=== PATIENT | female | born 1980 | race Caucasian/White ===

== ENCOUNTER 2017-12-03 10:03 | Emergency (ER) | payer MEDICAID ==
[~2017-12-03] VITALS: Ht 558.9 cm; Wt 48.0 kg
[~2017-12-03 10:03] MED LIST: ALBU8.5H4 IH
[2017-12-03] MEDS ORDERED: ondansetron/PF 4mg/2ml inj IV ONE (10:25)
[2017-12-03] MEDS ORDERED: normal saline 1000ML IV soln IVB ONE (10:25)
[2017-12-03 11:09] LABS: BASOPHILS % (AUTO) 0.4 % (0-1); EOSINOPHILS # (AUTO) 0.2 X10'3 (0-0.9); EOSINOPHILS % (AUTO) 3.8 % (0-6); HEMATOCRIT 39.8 % (35.0-45.0); HEMOGLOBIN 13.6 g/dl (12.0-16.0); LYMPHOCYTES # (AUTO) 1.8 X10'3 (1.1-4.8); MEAN CORPUSCULAR HEMOGLOBIN 32.5 PG (27.0-31.0); MEAN CORPUSCULAR HGB CONC 34.2 % (33.0-36.5); MEAN CORPUSCULAR VOLUME 95.1 FL (78-98); MEAN PLATELET VOLUME 8.4 FL (7.4-10.4); MONOCYTES # (AUTO) 0.4 X10'3 (0-0.9); MONOCYTES % (AUTO) 7.3 % (2-12); NEUTROPHILS # (AUTO) 3.4 X10'3 (1.8-7.7); NEUTROPHILS % (AUTO) 57.5 % (42-75); PLATELET COUNT 212 X10'3 (140-440); RED BLOOD COUNT 4.18 X10'6 (4.20-5.60); RED CELL DISTRIBUTION WIDTH 13.2 % (11.5-14.5); WHITE BLOOD COUNT 5.9 X10'3 (4.5-11.0)
[2017-12-03 11:19] LABS: PARTIAL THROMBOPLASTIN TIME 27 SECONDS (22-32); PROTHROMBIN TIME 10.3 SECONDS (9.0-12.0)
[2017-12-03 11:38] LABS: ALANINE AMINOTRANSFERASE 99 U/L (12-78); ALBUMIN 3.7 G/DL (3.4-5.0); ALBUMIN/GLOBULIN RATIO 1.1 (1.1-1.5); ALKALINE PHOSPHATASE 57 IU/L (46-116); ANION GAP 6 (8-16); ASPARTATE AMINO TRANSFERASE 61 U/L (10-37); BILIRUBIN,TOTAL 0.5 MG/DL (0.1-1.0); BLOOD UREA NITROGEN 18 MG/DL (7-18); BUN/CREATININE RATIO 22.5 (6.6-38.0); CALCIUM 8.6 MG/DL (8.5-10.1); CHLORIDE 105 MMOL/L (99-107); GLUCOSE 92 MG/DL (70-104); POTASSIUM 3.7 MMOL/L (3.5-5.1); SODIUM 139 MMOL/L (135-145); TOTAL CARBON DIOXIDE 27.8 MMOL/L (24-32); TOTAL PROTEIN 7.1 G/DL (6.4-8.2); eGFR 81 ML/MIN
[2017-12-03 12:42] VITALS: BP 90/52
== END 2017-12-03 12:44 | disposition home or self-care (01) ==
LOC: ER 10:04
DX: R07.89 Other chest pain (principal); R11.10 Vomiting, unspecified; R19.7 Diarrhea, unspecified; Z79.899 Other long term (current) drug therapy; Z56.0 Unemployment, unspecified
CPT/HCPCS: 36415; 71045; 80053; 84484; 85025; 85610; 85730; 93005; 96361; 96374; 99285; J2405

== ENCOUNTER 2019-03-07 19:16 | Emergency (ER) | payer MEDICAID ==
[~2019-03-07] VITALS: Ht 162.6 cm; Wt 53.0 kg
--- NOTE | 2019-03-07 19:34 | NUR ---
PT WITH RING ON RIGHT RING FINGER. STAFF WORKING TO REMOVE IT NOW.
[2019-03-07] MEDS ORDERED: morphine 4 MG/ML inj SYRINge IM ONE (19:45)
[2019-03-07] MEDS ORDERED: ondansetron 4mg rapidly disintigrating tab PO ONE (19:45)
--- NOTE | 2019-03-07 19:46 | NUR ---
spoke to MD Haywood regarding pts pain and inability to remove ring. We have tried the ring cutter on the Raptor trauma sheers and it broke the sheers. We have also tried the ring cutter which did not even scratch the surface of the ring. pt has blistering present distal to the ring so we have not tried the dental floss method at this time. Verbal order given for pain and nausea meds and once pt is more comfortable MD will maybe do a digital block and we can try the floss method.
[2019-03-07] MEDS ORDERED: HYDROmorphone 1 mg/ml syringe IV ONE ×2 (20:20)
--- NOTE | 2019-03-07 20:40 | NUR ---
multiple attempts to remove the ring have been unsuccessful. Two pair of raptor trauma sheers with ring cutter have broken. The manual ring cutter continues to not make any cuts. the dental floss procedure was successful in getting the ring to move to the base of the knuckle but pt was unable to tolerate the procedure. MD huff
[2019-03-07] MEDS ORDERED: NORMAL SALINE IV ONE (20:45)
[2019-03-07] MEDS ORDERED: KETAMINE IV ONE (20:45)
--- NOTE | 2019-03-07 20:46 | NUR ---
pt moved from ER bed 8 to rm 5 for conscious sedation.
[2019-03-07] MEDS ORDERED: ketamine 10mg/ml 20ml inj 0 MG in normal saline 100ml IV soln 100 ML IV ONE (20:50)
[2019-03-07] MEDS ORDERED: propofol 1000mg/100ml bottle 100 ML IV ONE (20:51)
--- NOTE | 2019-03-07 21:15 | NUR ---
WE WERE SUCCESSFUL AT GETTING THE GUARD UNDER THE RING AND ABLE TO USE THE DREMMEL TO ATTEMPT TO CUT THE RING. AFTER APPROX 10 MINS OF USING THE DREMMEL WITH GUARD UNDER THE RING WE WERE NOT SUCCESSFUL IT WOULD STILL NOT CUT IT. WE ARE ATTEMPTING TO LOCATE ANOTHER DREMMEL/BLADE AT THIS TIME.
--- NOTE | 2019-03-07 21:15 | NUR ---
procedure interrupted due to getting another ring cutter.
--- NOTE | 2019-03-07 21:17 | NUR ---
I have SBAR'd to JEANETTE Cruz and she has been present during the procedure and is aware of pts condition. She will be assuming care of this pt for the duration of the procedure so that I can go home to get a dremmel as the one we have is not working effectively.
--- NOTE | 2019-03-07 21:29 | NUR ---
2129 procedure restarted , new ring cutter at bedside
--- NOTE | 2019-03-07 21:44 | NUR ---
procedure ended 2137
[2019-03-07] MEDS ORDERED: bacitracin 15gm ointment TP STA (21:53)
[2019-03-07] MEDS ORDERED: BACI1PAC7 TP (22:04)
[2019-03-07] MEDS ORDERED: propofol 10mg/ml 20ml vial IV ONE (22:10)
[2019-03-07 22:12] VITALS: BP 132/96
[2019-03-08] MEDS ORDERED: HYDROmorphone 2mg/ml vial IV ONE ×2
== END 2019-03-07 22:31 | disposition home or self-care (01) ==
LOC: ER 19:17
DX: T23.221A Burn of second degree of single right finger (nail) except thumb, initial encounter (principal); F32.9 Major depressive disorder, single episode, unspecified; Z87.442 Personal history of urinary calculi; Z56.0 Unemployment, unspecified; Z79.899 Other long term (current) drug therapy; W49.04XA Ring or other jewelry causing external constriction, initial encounter; X10.2XXA Contact with fats and cooking oils, initial encounter; Y93.89 Activity, other specified; Y92.89 Other specified places as the place of occurrence of the external cause; Y99.8 Other external cause status
CPT/HCPCS: 16020; 96372; 96374; 99285; J1170; J2270; J2704; 99152

== ENCOUNTER 2019-05-21 11:35 | Emergency (ER) | payer MEDICAID ==
[~2019-05-21] VITALS: Ht 160 cm; Wt 50.0 kg
[2019-05-21 11:59] VITALS: BP 126/83
[2019-05-21] MEDS ORDERED: LIDOcaine 1% W/epiNEPHrine 1:200,000 10ml vial IJ ONE (12:25)
[2019-05-21] MEDS ORDERED: HYDROcodone/acetaminophen 10/325mg tab PO ONE (12:25)
== END 2019-05-21 15:00 | disposition home or self-care (01) ==
LOC: ER 11:36
DX: S63.512A Sprain of carpal joint of left wrist, initial encounter (principal); S61.411A Laceration without foreign body of right hand, initial encounter; F32.9 Major depressive disorder, single episode, unspecified; Z98.890 Other specified postprocedural states; Z87.442 Personal history of urinary calculi; Z56.0 Unemployment, unspecified; Z79.899 Other long term (current) drug therapy; W26.8XXA Contact with other sharp object(s), not elsewhere classified, initial encounter; Y93.89 Activity, other specified; Y92.89 Other specified places as the place of occurrence of the external cause; Y99.8 Other external cause status
CPT/HCPCS: 12002; 73130; 99283

== ENCOUNTER 2019-05-28 10:19 | Emergency (ER) | payer MEDICAID ==
[~2019-05-28] VITALS: Ht 162.6 cm; Wt 55.5 kg
[2019-05-28 10:25] VITALS: BP 137/88
== END 2019-05-28 10:59 | disposition home or self-care (01) ==
LOC: ER 10:19
DX: S61.411D Laceration without foreign body of right hand, subsequent encounter (principal); Z56.0 Unemployment, unspecified; Z98.890 Other specified postprocedural states; W26.8XXD Contact with other sharp object(s), not elsewhere classified, subsequent encounter
CPT/HCPCS: 99281

== ENCOUNTER 2019-06-07 15:36 | Outpatient (CLI) | payer MEDICAID | END 2019-06-07 16:30 | disposition home or self-care (01) | LOC: ORTHO 15:36 | PROVIDERS: ATTEND Orthopaedic Surgery | DX: S61.411D Laceration without foreign body of right hand, subsequent encounter (principal); Z98.890 Other specified postprocedural states; X58.XXXD Exposure to other specified factors, subsequent encounter | CPT/HCPCS: G0463 ==

== ENCOUNTER 2019-06-22 10:15 | Outpatient (CLI) | payer MEDICAID | END 2019-06-22 23:59 | disposition home or self-care (01) | LOC: RAD 10:15 | PROVIDERS: ATTEND Orthopaedic Surgery | DX: S66.324A Laceration of extensor muscle, fascia and tendon of right ring finger at wrist and hand level, initial encounter (principal); M25.331 Other instability, right wrist; X58.XXXA Exposure to other specified factors, initial encounter; Y93.89 Activity, other specified; Y92.89 Other specified places as the place of occurrence of the external cause; Y99.8 Other external cause status | CPT/HCPCS: 73218 ==

== ENCOUNTER 2019-06-26 15:23 | Outpatient (CLI) | payer MEDICAID ==
[2019-06-29] MEDS ORDERED: MIRT45TA83 PO (14:07)
[2019-06-29] MEDS ORDERED: BUPR1FIL3 SL (14:07)
== END 2019-06-26 17:00 | disposition home or self-care (01) ==
LOC: ORTHO 15:23
PROVIDERS: ATTEND Orthopaedic Surgery
DX: M20.091 Other deformity of right finger(s) (principal)
CPT/HCPCS: G0463

== ENCOUNTER 2019-07-04 11:57 | Day surgery (SDC) | payer MEDICAID ==
[2019-06-29 15:00] LABS: BASOPHILS # (AUTO) 0.1 X10'3 (0-0.2); BASOPHILS % (AUTO) 0.8 % (0-1); EOSINOPHILS # (AUTO) 0.6 X10'3 (0-0.9); EOSINOPHILS % (AUTO) 8.3 % (0-6); LYMPHOCYTES # (AUTO) 2.5 X10'3 (1.1-4.8); LYMPHOCYTES % (AUTO) 35.1 % (21-51); MEAN CORPUSCULAR HEMOGLOBIN 33.6 PG (27.0-31.0); MEAN CORPUSCULAR HGB CONC 34.7 g/dL (33.0-36.5); MEAN PLATELET VOLUME 8.7 FL (7.4-10.4); MONOCYTES # (AUTO) 0.4 X10'3 (0-0.9); MONOCYTES % (AUTO) 5.1 % (2-12); NEUTROPHILS # (AUTO) 3.5 X10'3 (1.8-7.7); NEUTROPHILS % (AUTO) 50.7 % (42-75); PRE OP HEMATOCRIT 41.7 % (35.0-45.0); PRE OP HEMOGLOBIN 14.4 g/dL (12.0-16.0); PRE OP PLATELET COUNT 252 X10'3 (140-440); RED BLOOD COUNT 4.29 X10'6 (4.20-5.60); RED CELL DISTRIBUTION WIDTH 13.1 % (11.5-14.5)
[2019-06-29 15:12] LABS: ALBUMIN/GLOBULIN RATIO 1.1 (1.1-1.5); ALKALINE PHOSPHATASE 74 IU/L (46-116); BLOOD UREA NITROGEN 20 MG/DL (7-18); BUN/CREATININE RATIO 34.5 (6.6-38.0); CALCIUM 8.7 MG/DL (8.5-10.1); CHLORIDE 105 MMOL/L (99-107); CREATININE 0.58 MG/DL (0.40-0.90); PRE OP ALT 43 U/L (30-65); PRE OP ANION GAP 7 (8-16); PRE OP AST 37 U/L (10-37); PRE OP BILIRUB, TOTAL 0.2 MG/DL (0.0-1.0); PRE OP GLUCOSE 95 MG/DL (70-104); PRE OP POTASSIUM 3.9 MMOL/L (3.4-5.1); PRE OP SODIUM 141 MMOL/L (135-145); TOTAL CARBON DIOXIDE 28.6 MMOL/L (24-32); TOTAL PROTEIN 7.8 G/DL (6.4-8.2); eGFR > 90 ML/MIN
[~2019-07-04] VITALS: Ht 162.6 cm; Wt 56.4 kg
[~2019-07-04 11:57] MED LIST changes: -ALBU8.5H4 IH; +BUPR1FIL3 SL; +MIRT45TA83 PO; +ceFAZolin 2gm in dextrose, iso 50 ML IV ONE; +famotidine 20mg tablet PO ONE; +ringers solution, lacted 1,000 ML IV SCH
[2019-07-04 12:15] VITALS: BP 107/61
[2019-07-04] MEDS ORDERED: ringers solution, lacted 1,000 ML IV SCH (13:41)
[2019-07-04] MEDS ORDERED: meperidine/PF 25mg/ml syringe IV PRN ×3 (13:45)
[2019-07-04] MEDS ORDERED: morphine 4 MG/ML inj SYRINge IV PRN (13:45)
[2019-07-04] MEDS ORDERED: proCHLORperazine 10 MG/2 ml inj IV PRN (13:45)
[2019-07-04] MEDS ORDERED: ondansetron/PF 4mg/2ml inj IV PRN (13:45)
[2019-07-04] MEDS ORDERED: morphine 2 MG/ML inj. syringe IV PRN (13:45)
[2019-07-04 13:59] LABS: HCG SERUM QL NEGATIVE
[2019-07-04] MEDS ORDERED: ceFAZolin 1000mg inj ONE (15:02)
[2019-07-04] MEDS ORDERED: dexamethasone sod phosphate 10mg/ml inj ONE (15:40)
[2019-07-04] MEDS ORDERED: glycopyrrolate 0.2mg/ml inj ONE (15:40)
[2019-07-04] MEDS ORDERED: sevoflurane 250ml liquid IH ONE (15:40)
[2019-07-04] MEDS ORDERED: MIDAZolam 5mg/5ml vial ONE (15:42)
[2019-07-04] MEDS ORDERED: fentaNYL/PF 50MCG/1 ML 2ML syringe ONE (15:42)
[2019-07-04] MEDS ORDERED: LIDOcaine 1% 30ml preserv. free vial ONE (15:44)
[2019-07-04] MEDS ORDERED: ketorolac trometh. 30mg/ml inj. ONE (15:50)
[2019-07-04] MEDS ORDERED: 0.9 % SODIUM CHLORIDE 10 ML VIAL ONE (16:02)
[2019-07-04] MEDS ORDERED: BUPIVAcaine/PF 2.5 mg/ml (0.25%) 30ml vial ONE (16:13)
[2019-07-04] MEDS ORDERED: LIDOcaine 2% (20mg/ml) 5ml vial ONE (16:57)
[2019-07-04 17:05] VITALS: BP 132/78
--- NOTE | 2019-07-04 17:05 | NUR ---
Received from OR via [facility], accompanied by Anesthesiologist Ezra and report given by Anesthesiolgist. Pt responsive to questions but sleepy, mask to 10L sats 99%. All other VS WNL, fingers to right hand able to move, good cap refill. 20G left forearm LR IVF. Right hand wrapped with gauze, splint and FELICITAS wrap.
[2019-07-04 17:15] VITALS: BP 121/58
[2019-07-04 17:25] VITALS: BP 119/85
[2019-07-04 17:35] VITALS: BP 114/89
[2019-07-04 17:45] VITALS: BP 116/76
--- NOTE | 2019-07-04 17:55 | NUR ---
Pt discharged to vehicle by wheelchair without incident. Pt verbalized understanding of discharge instructions, IV dc'd, all belongings returned to patient. S/O present at discharge. We discussed pain medications and using OTC meds for this evening, states that would be sufficient. Pt states she would be having an appointment with her suboxone doctor tomorrow to see if she can get a temporary increased dose. Otherwise she was apologetic for "being rude and difficult" prior to surgery and was extremely thankful for all care received. Pt knows to keep her splint dry and follow up in 1 week.
== END 2019-07-04 17:55 | disposition home or self-care (01) ==
LOC: PAS 11:57
PROVIDERS: ATTEND Orthopaedic Surgery
DX: S66.324A Laceration of extensor muscle, fascia and tendon of right ring finger at wrist and hand level, initial encounter (principal); F17.210 Nicotine dependence, cigarettes, uncomplicated; F11.90 Opioid use, unspecified, uncomplicated; Z72.89 Other problems related to lifestyle; Z87.19 Personal history of other diseases of the digestive system; Z79.899 Other long term (current) drug therapy; Z98.890 Other specified postprocedural states; X58.XXXA Exposure to other specified factors, initial encounter; Y93.89 Activity, other specified; Y92.89 Other specified places as the place of occurrence of the external cause; Y99.8 Other external cause status
CPT/HCPCS: 26418; 36415; 80053; 82948; 84703; 85025; J0690; J1100; J1885; J2001; J2250; J3010; J3490; A4215; A4618; A6449; A7000; J7120

== ENCOUNTER 2019-07-24 15:26 | Outpatient (CLI) | payer MEDICAID ==
[~2019-07-24 15:26] MED LIST changes: -ceFAZolin 2gm in dextrose, iso 50 ML IV ONE; -famotidine 20mg tablet PO ONE; -ringers solution, lacted 1,000 ML IV SCH
== END 2019-07-24 16:20 | disposition home or self-care (01) ==
LOC: ORTHO 15:26
PROVIDERS: ATTEND Orthopaedic Surgery
DX: Z48.02 Encounter for removal of sutures (principal)
CPT/HCPCS: G0463

== ENCOUNTER 2019-08-16 09:47 | Emergency (ER) | payer MEDICAID ==
[~2019-08-16] VITALS: Ht 162.6 cm; Wt 56.8 kg
[2019-08-16 09:50] VITALS: BP 135/88
--- NOTE | 2019-08-16 10:07 | NUR ---
xray in progres.
[2019-08-16] MEDS ORDERED: AZIT250T83 PO (10:33)
== END 2019-08-16 10:47 | disposition home or self-care (01) ==
LOC: ER 09:47
DX: R09.1 Pleurisy (principal); F32.9 Major depressive disorder, single episode, unspecified; Z98.890 Other specified postprocedural states; Z56.0 Unemployment, unspecified; Z79.2 Long term (current) use of antibiotics; Z79.899 Other long term (current) drug therapy
CPT/HCPCS: 71045; 93005; 99283

== ENCOUNTER 2021-02-11 13:18 | Emergency (ER) | payer MEDICAID ==
[~2021-02-11] VITALS: Ht 165.1 cm; Wt 59.1 kg
[2021-02-11 13:38] VITALS: BP 137/98
[2021-02-11] MEDS ORDERED: ketorolac tromethamine 15mg/ml inj. IM ONE (14:00)
[2021-02-11] MEDS ORDERED: ondansetron 4mg rapidly disintigrating tab PO ONE (14:00)
[2021-02-11] MEDS ORDERED: acetaminophen 325mg tablet PO ONE (14:00)
== END 2021-02-11 15:00 | disposition left against medical advice (07) ==
LOC: ER 13:19
DX: Z11.52 Encounter for screening for COVID-19 (principal); R07.89 Other chest pain; R05 Cough; R50.9 Fever, unspecified; R11.10 Vomiting, unspecified; R51.9 Headache, unspecified; F17.200 Nicotine dependence, unspecified, uncomplicated; Z98.890 Other specified postprocedural states; Z56.0 Unemployment, unspecified; Z79.899 Other long term (current) drug therapy
CPT/HCPCS: 93005; 99281; 99283

== ENCOUNTER 2021-05-09 20:22 | Emergency (ER) | payer MEDICAID ==
[~2021-05-09] VITALS: Ht 165.1 cm; Wt 59.1 kg
[2021-05-09 20:33] VITALS: BP 136/95
== END 2021-05-09 21:24 | disposition left against medical advice (07) ==
LOC: ER 20:22
DX: R07.9 Chest pain, unspecified (principal); Z53.21 Procedure and treatment not carried out due to patient leaving prior to being seen by health care provider
CPT/HCPCS: 93005

== ENCOUNTER 2024-02-05 18:22 | Emergency (ER) | payer MEDICAID ==
[~2024-02-05] VITALS: Ht 160 cm; Wt 54.5 kg
[2024-02-05 19:12] LABS: BASOPHILS % (AUTO) 0.6 % (0-1); EOSINOPHILS # (AUTO) 0.4 X10'3 (0-0.9); EOSINOPHILS % (AUTO) 4.9 % (0-6); HEMATOCRIT 43.9 % (35.0-45.0); HEMOGLOBIN 14.5 g/dl (12.0-16.0); LYMPHOCYTES # (AUTO) 3.1 X10'3 (1.1-4.8); LYMPHOCYTES % (AUTO) 41.5 % (21-51); MEAN CORPUSCULAR HEMOGLOBIN 33.1 PG (27.0-31.0); MEAN CORPUSCULAR HGB CONC 33.1 g/dL (33.0-36.5); MEAN CORPUSCULAR VOLUME 100.3 FL (78-98); MEAN PLATELET VOLUME 7.8 FL (7.4-10.4); MONOCYTES # (AUTO) 0.4 X10'3 (0-0.9); NEUTROPHILS # (AUTO) 3.5 X10'3 (1.8-7.7); PLATELET COUNT 332 X10'3 (140-440); RED BLOOD COUNT 4.38 X10'6 (4.20-5.60); WHITE BLOOD COUNT 7.4 X10'3 (4.5-11.0)
[2024-02-05 19:27] LABS: ALANINE AMINOTRANSFERASE 26 U/L (12-78); ALBUMIN 3.2 G/DL (3.4-5.0); ALBUMIN/GLOBULIN RATIO 0.9 (1.1-1.5); ALKALINE PHOSPHATASE 66 IU/L (46-116); ANION GAP 14 (8-16); ASPARTATE AMINO TRANSFERASE 32 U/L (10-37); BILIRUBIN,TOTAL 0.3 MG/DL (0.1-1.0); BLOOD UREA NITROGEN 9 MG/DL (7-18); BUN/CREATININE RATIO 14.1 (10.0-20.0); CALCIUM 8.3 MG/DL (8.5-10.1); CHLORIDE 108 MMOL/L (99-107); CREATININE 0.64 MG/DL (0.40-0.90); GLUCOSE 101 MG/DL (70-104); POTASSIUM 3.5 MMOL/L (3.5-5.1); SODIUM 147 MMOL/L (135-145); TOTAL CARBON DIOXIDE 24.8 MMOL/L (24-32); TOTAL PROTEIN 6.9 G/DL (6.4-8.2); eCRCL 94 ML/MIN; eGFR > 90 ML/MIN
[2024-02-05 19:38] LABS: SALICYLATE 3.3 MG/DL (4.0-20.0); THYROID STIMULATING HORMONE 0.46 ulU/ml (0.34-4.50)
[2024-02-05 19:52] LABS: ETHANOL 305 MG/DL (<10)
[2024-02-05 19:54] LABS: ACETAMINOPHEN < 2.0 UG/ML (10-30)
[2024-02-06 08:31] LABS: BILIRUBIN,URINE SMALL (Neg); CLARITY,URINE CLEAR (Clear); COLOR,URINE YELLOW (Yellow); GLUCOSE, URINE NEGATIVE (Neg); KETONES,URINE 40 mg/dl (Neg); LEUKOCYTE ESTERASE ,URINE MODERATE (Neg); NITRITES, URINE POSITIVE (Neg); OCCULT BLOOD,URINE TRACE-INTACT (Neg); PH,URINE 6.5 (4.8-8.0); PROTEIN,URINE 30 mg/dl (Neg); URINE HCG NEGATIVE (NEG)
[2024-02-06 08:41] LABS: UA COLLECTION TYPE CLN CATCH MIDSTREAM
[2024-02-06 08:49] LABS: BACTERIA,URINE 1+ /HPF (Neg); MUCUS STRANDS NONE SEEN /LPF (Neg); RBC,URINE 0-2 /HPF (0-2); SQUAMOUS EPITHELIAL CELL,UR MANY /LPF (FEW); WBC,URINE 20-30 /HPF (0-4)
[2024-02-06 08:54] LABS: URINE AMPHETAMINE SCREEN POSITIVE (Neg); URINE BARBITUATE SCREEN NEGATIVE (Neg); URINE BENZODIAZEPINES SCREEN POSITIVE (Neg); URINE CANNABINOID SCREEN POSITIVE (Neg); URINE COCAINE SCREEN NEGATIVE (Neg); URINE METHADONE SCREEN NEGATIVE (Neg); URINE OPIATE SCREEN POSITIVE (Neg); URINE PHENCYCLIDINE SCREEN NEGATIVE (Neg)
[2024-02-06] MEDS: LORazepam 1 MG tablet PO ONE (10:26)
[2024-02-06 13:04] VITALS: BP 120/76; PULSE 104; RESP 15; O2SAT 100
[2024-02-06 14:46] VITALS: TEMP 97.5
== END 2024-02-06 14:42 | disposition home or self-care (01) ==
LOC: ER 18:23
DX: F10.129 Alcohol abuse with intoxication, unspecified (principal); Z20.822 Contact with and (suspected) exposure to COVID-19; F12.90 Cannabis use, unspecified, uncomplicated; F32.A Depression, unspecified; Z79.899 Other long term (current) drug therapy; Z98.890 Other specified postprocedural states; Y90.9 Presence of alcohol in blood, level not specified
CPT/HCPCS: 36415; 80053; 80305; 80320; 80329; 81001; 81025; 84443; 84484; 85025; 87811; 99283